=== PATIENT | female | born 1955 | race Caucasian/White ===

== ENCOUNTER 2022-07-27 05:32 | Outpatient (CLI) | payer MEDICARE, OTHER ==
[~2022-07-27] VITALS: Ht 157.5 cm; Wt 108.4 kg
[2022-07-27 09:09] LABS: BILIRUBIN,URINE NEGATIVE (NEGATIVE); CLARITY,URINE CLEAR; COLOR,URINE YELLOW; GLUCOSE, URINE (UA) NEGATIVE (NEGATIVE); KETONES,URINE NEGATIVE (NEGATIVE); LEUKOCYTE ESTERASE ,URINE TRACE (NEGATIVE); NITRITE,URINE NEGATIVE (NEGATIVE); PROTEIN,URINE NEGATIVE (NEGATIVE)
[2022-07-27] MEDS ORDERED: HYDR12.56 PO (09:17)
[2022-07-27] MEDS ORDERED: VITA1CAP PO (09:17)
[2022-07-27] MEDS ORDERED: ESCI10TA PO (09:17)
[2022-07-27] MEDS ORDERED: NAPR220C11 PO (09:17)
[2022-07-27] MEDS ORDERED: PSYL3.4P5 PO (09:17)
[2022-07-27] MEDS ORDERED: MELA1TAB51 PO (09:17)
[2022-07-27] MEDS ORDERED: PROPRANOLOL PO (09:17)
[2022-07-27] MEDS ORDERED: SEMA2.4P SQ (09:17)
[2022-07-27] MEDS ORDERED: B6/F1CAP PO (09:17)
[2022-07-27] MEDS ORDERED: LEVO75CA5 PO (09:17)
[2022-07-27] MEDS ORDERED: OLME20TA75 PO (09:17)
[2022-07-27] MEDS ORDERED: UBID60CA8 PO (09:17)
[2022-07-27] MEDS ORDERED: ONDA4TAB11 SL (09:17)
[2022-07-27] MEDS ORDERED: MULT-1136 PO (09:17)
[2022-07-27] MEDS ORDERED: TURM500C13 PO (09:17)
[2022-07-27] MEDS ORDERED: DICL20GE TP (09:17)
[2022-07-27 09:19] VITALS: BP 127/79
[2022-07-27 09:23] LABS: RBC,URINE RARE /HPF
[2022-07-27 09:24] LABS: BACTERIA,URINE NEGATIVE /HPF; SQUAMOUS EPITHELIAL CELL,UR 0-2 /HPF; WBC,URINE RARE /HPF
--- NOTE | 2022-07-27 09:49 | Physical Therapy Pre-Op Eval ---
PT Pre-Surgical Assessment Type of Surgery Type of Surgery: Prior Level of Function Current Living Status: Spouse Locomotion (Upon Admit): Independent Distance: Unlimited PLOF DME: Front Wheeled Walker Subjective Subjective Patient reports right knee pain at 3/10. Home: Single Level Current Living Status: Spouse Entry Into Home: Stairs With Railing Steps Into Home: 5 Steps Inside Home: 2 Steps Accessories: Railing Present Motor Control Motor Control: Motor Control WNL ROM ROM: WFL, except focal deficit Strength Strength: Gen Weak,No Focal Deficit Transfers Transfers (B, C, W/C) (FIM): 6 Gait Gait (FIM): 6 Distance: 200' Gait Assistive Device: None Right Lower Extremity: Right Full Weight Bearing Left Lower Extremity: Left Full Weight Bearing Treatment Rendered Treatment: Patient instructed in assistive device, supported ambulation. Patient instructed in and given written program of ROM and strengthening exercises to be preformed post-op. Patient instructed in movement precautions where applicable. Patient demonstrates understandings of post-operative therapy protocol including gait pattern and exercise program. Pre-operative instruction completed; await physical therapy orders after surgery. Treatment Goal Met: Yes Assessment Goals Acheived: I Ambulation w/ FWW, Understands P-op Precaut, I Post-op Exercises Charges/GCodes Time In: 930 Time Out: 940 Total Billed Treatment Time: 10 Total Billed Treatment Visit, VINI PACHECO PT Jul 27, 2022 09:49
[2022-07-27 10:39] LABS: BASOPHILS % (AUTO) 1 % (0-10); EOSINOPHILS # (AUTO) 0.2 10^3/uL (0.0-0.3); EOSINOPHILS % (AUTO) 3 % (0-10); HEMATOCRIT 42 % (35-52); HEMOGLOBIN 13.8 g/dL (11.5-16.0); LYMPHOCYTES # (AUTO) 1.1 10^3/uL (1.0-4.0); LYMPHOCYTES % (AUTO) 19 % (12-44); MEAN CORPUSCULAR HEMOGLOBIN 29 pg (25-34); MEAN CORPUSCULAR HGB CONC 33 g/dL (32-36); MEAN CORPUSCULAR VOLUME 89 fL (80-99); MEAN PLATELET VOLUME 11.8 fL (9.0-12.2); MONOCYTES # (AUTO) 0.7 10^3/uL (0.0-1.0); MONOCYTES % (AUTO) 12 % (0-12); NEUTROPHILS # (AUTO) 3.8 10^3/uL (1.8-7.8); NEUTROPHILS % (AUTO) 66 % (42-75); PLATELET COUNT 152 10^3/uL (130-400); WHITE BLOOD COUNT 5.8 10^3/uL (4.3-11.0)
[2022-07-27 10:56] LABS: BILIRUBIN,TOTAL 0.6 MG/DL (0.1-1.0); CALCIUM 9.7 MG/DL (8.5-10.1); CREATININE SERUM 0.77 MG/DL (0.60-1.30); POTASSIUM 3.7 MMOL/L (3.6-5.0); TOTAL PROTEIN 6.9 GM/DL (6.4-8.2)
[2022-07-27 11:13] LABS: INR 1.1 (0.8-1.4); PROTHROMBIN TIME PATIENT 14.5 SEC (12.2-14.7)
[2022-07-27 11:15] LABS: ERYTHROCYTE SEDIMENTATION RATE 28 MM/HR (0-30)
--- NOTE | 2022-07-27 12:59 | Diagnostic Imaging Report ---
INDICATION: Preoperative evaluation prior to knee replacement. COMPARISON: None FINDINGS: Frontal and lateral views of the chest demonstrate normal heart size and pulmonary vascularity. The lungs are clear. There are no signs of infiltrate, pleural effusions or pneumothoraces. The visualized osseous structures show no acute abnormalities. IMPRESSION: 1. No acute process. No signs of infiltrates, effusions or pneumothoraces. Dictated by: Dictated on workstation # [id number]
== END 2022-07-27 15:43 ==
LOC: PREOP 05:32
PROVIDERS: ATTEND Orthopaedic Surgery
DX: Z01.812 Encounter for preprocedural laboratory examination (principal); M17.11 Unilateral primary osteoarthritis, right knee
CPT/HCPCS: 36415; 71046; 80053; 81000; 82308; 85025; 85610; 85652; 86850; 86900; 86901; 87081; 93005

== ENCOUNTER 2022-08-03 05:57 | Inpatient (IN) | payer MEDICARE, OTHER ==
--- NOTE | 2022-07-27 07:51 | HISTORY AND PHYSICAL ---
This will be for inpatient admission on 08/03/2022 for right total knee arthroplasty. The patient will require regular inpatient admission due to pain management, need for physical therapy and gait abnormalities. HISTORY: The patient is a 67-year-old female with longstanding progressive right knee pain. She has previously undergone treatment with injections. She has tried weight loss without relief. She reports limitations because of the knee. Radiographs reveal severe tricompartmental osteoarthritis and due to functional impairment and failure to improve with conservative measures, the patient elected to proceed with surgical intervention. REVIEW OF SYSTEMS: No chest pain, no shortness of breath. No dysuria. PAST MEDICAL HISTORY: Hyperlipidemia, hypertension, hypothyroidism. PAST SURGICAL HISTORY: Appendectomy, adenoidectomy, cholecystectomy, tonsillectomy, hysterectomy, right wrist, right ankle, left wrist. FAMILY HISTORY: Diabetes, cancer, hypertension and stroke. PRIMARY CARE PROVIDER: Stephanie Kern, nurse practitioner. MEDICATIONS: Propranolol, ondansetron, olmesartan, melatonin, levothyroxine, hydrochlorothiazide, escitalopram, diclofenac, cholecalciferol, Aleve, acyclovir. ALLERGIES: NO KNOWN DRUG ALLERGIES. SOCIAL HISTORY: The patient denies alcohol and tobacco use. PHYSICAL EXAMINATION: GENERAL: The patient is well-developed, well-nourished, in no acute distress. HEENT: Normocephalic, atraumatic. Pupils are equal, round and reactive to light. Oropharynx is clear. NECK: Supple, with no lymphadenopathy. LUNGS: Clear to auscultation bilaterally. HEART: Regular rate and rhythm. ABDOMEN: Soft, nontender, nondistended. EXTREMITIES: The right knee demonstrates valgus alignment. She has a slight effusion. She is tender along her lateral joint line. She has palpable crepitus and pain with patellar loading. Range of motion 0/0/120. There is no varus or valgus laxity. Negative anterior and posterior drawer. Negative straight leg raise. IMPRESSION: Severe right knee osteoarthritis, unresponsive to conservative measures. PLAN: Right total knee arthroplasty. The risks, benefits, options, ramifications and recovery have been discussed at length with the patient. She understands and wishes to proceed. This is inpatient admission H and P and date of admission will be 08/03/2022. Job ID: [id number] DocumentID: [id number] Dictated Date: 07/08/2022 10:53:38 Grain Oilseed Or Pasture Farm Worker Date: 07/08/2022 12:18:00 Dictated By: SARA RUSSELL MD
[~2022-08-03] VITALS: Ht 157.5 cm; Wt 108.4 kg
[2022-08-03] VITALS (11 sets, daily range): BP systolic 99–164; BP diastolic 57–86
[~2022-08-03 05:57] MED LIST: B6/F1CAP PO; DICL20GE TP; ESCI10TA PO; HYDR12.56 PO; LEVO75CA5 PO; MELA1TAB51 PO; MULT-1136 PO; NAPR220C11 PO; OLME20TA75 PO; ONDA4TAB11 SL; PROPRANOLOL PO; PSYL3.4P5 PO; SEMA2.4P SQ; TURM500C13 PO; UBID60CA8 PO; VITA1CAP PO
[2022-08-03] MEDS ORDERED: CEFUROXIME INJECTION 1,500 MG in NS (IVPB) 50 ML IV ONE (06:30)
[2022-08-03] MEDS ORDERED: PROPOFOL INJECTION 50 ML IV ONE (06:44)
[2022-08-03] MEDS ORDERED: MIDAZOLAM 2 MG/2 ML (VERSED) VIAL ONE (06:44)
[2022-08-03] MEDS: LACTATED RINGERS 1,000 ML IV PRN ×2 (06:47→08:42)
[2022-08-03] MEDS ORDERED: fentaNYL INJ 100 MCG/2 ML AMP ONE (06:48)
[2022-08-03] MEDS ORDERED: morphine INJ 4 MG/ML 1 ML (VIAL/SYRINGE) IVP PRN (07:15)
[2022-08-03] MEDS ORDERED: ONDANSETRON 4 MG/2 ML (SDV) Z0FRAN IVP PRN ×2 (07:15→09:30)
[2022-08-03] MEDS ORDERED: diphenhydrAMINE 50 MG/ML INJ (BENADRYL) IVP PRN (07:15)
[2022-08-03] MEDS ORDERED: NALOXONE 0.4 MG/ML 1 ML (NARCAN) VIAL IV PRN (07:15)
[2022-08-03] MEDS ORDERED: INTRA-ARTICULAR IU ONE ×5 (07:30)
--- NOTE | 2022-08-03 07:34 | Progress Note-Pre Operative ---
Pre-Operative Progress Note Date of Available H&P: Jul 27, 2022 Date H&P Reviewed: Aug 03, 2022 Time H&P Reviewed: 07:11 Changes from last HP none Pre-Operative Diagnosis: right knee primary osteoarthritis SARA RUSSELL MD Aug 03, 2022 07:34
--- NOTE | 2022-08-03 07:35 | Progress Note-Post Operative ---
Post-Operative Progess Note Surgeon (s)/Senior Reactor Operator (s) Surgeon SARA RUSSELL MD Senior Reactor Operator: Clifton Bolton Pre-Operative Diagnosis right knee primary osteoarthritis Post-Operative Diagnosis right knee primary osteoarthritis Procedure & Operative Findings Date of Procedure 08/03/22 Procedure Performed/Findings right total knee arthroplasty Anesthesia Type spinal Estimated Blood Loss Estimated blood loss (mL): minimal Specimens/Packing Specimens Removed none Packing: none SARA RUSSELL MD Aug 03, 2022 07:35
--- NOTE | 2022-08-03 07:38 | D/C HH Face to Face Order ---
D/C Face to Face Orders Reconcile Patient Problems Problems Reviewed?: Yes Instructions for Patient Via Cristy Lucent Sky, Patient Instructions/FollowUp: three weeks Physician to follow Patient: three weeks Discharge Diet for Home: Regular Diet Patient Data-Allergies,Ht & Wt Patient Allergies: Coded Allergies: No Known Drug Allergies (Unverified , 07/27/22) Home Health Need/Face to Face Date of Face to Face: Aug 03, 2022 Clinical Findings: Muscle weakness, Pain with ambulation, Unsteady gait I have seen Pt elxa-fa-yrqw: Yes Discharged To: Home Diagnosis/Conditions: right total knee arthroplasty Patient is Homebound due to: Muscle weakness, Pain w/ambulation Homebound Status Due to the above stated illness, injury or surgical procedure (medical condition or diagnosis) and associated clinical findings, the patient is homebound because of his/her inability to leave home except with aid of a supportive device and/or person AND leaving the home requires a considerable and taxing effort or is medically contraindicated. Pt req the following assistanc: Walker Home Health Nursing Orders Home Health Services Order: Physical Therapy-Evaluate & Treat DC right knee rocio and apply steri strips 08/17/22 Home Health Infusion Therapy Line Start Date: Aug 03, 2022 Therapy Orders Therapy Orders: Physical Therapy, PT to assess for OT Therapy Specific Orders: Eval assistive deivces, Gait training, Increase strength/endurance, Provider maintenance therapy, Restore ROM Certify Stmt I certify that this patient is under my care and that I, a nurse practitioner or a physician; a assistant to the president working with me, had a face to face encounter that - meets the physician face to face encounter requirements with this patient as dated. SARA RUSSELL MD Aug 03, 2022 07:38
[2022-08-03] MEDS ORDERED: BUPIVACAINE 0.5% 30 ML (SENSORCAINE) VIAL ONE ×2 (07:57→08:35)
[2022-08-03] MEDS ORDERED: LIDOCAINE PF 2% 5 ML (XYLOCAINE) VIAL ONE (07:57)
[2022-08-03] MEDS ORDERED: PHENYLEPHRINE 100 MCG/ML 10 ML (ANESTHESIA) SYR ONE (08:03)
[2022-08-03] MEDS ORDERED: TRANEXAMIC ACID 100 MG/ML 10 ML INJECTION ONE (08:35)
[2022-08-03] MEDS ORDERED: ROPIVACAINE 5MG/ML 30ML VIAL ONE (08:47)
[2022-08-03] MEDS ORDERED: MEPERIDINE (DEMEROL) INJ 50 MG/ML IVP ONE (09:30)
[2022-08-03] MEDS ORDERED: morphine INJ 10 MG/ML 1ML (SYR OR VIAL) IVP ONE (09:30)
[2022-08-03] MEDS ORDERED: fentaNYL INJ 100 MCG/2 ML AMP IVP ONE (09:30)
--- NOTE | 2022-08-03 09:45 | Diagnostic Imaging Report ---
Indication: Right knee pain AP and lateral views the right knee are obtained at 9:20 a.m. There is a new right knee prosthesis in place which appears in anatomic alignment. There is no sign of fracture or acute bony abnormality. There is no unexpected radiopaque foreign body post surgery. IMPRESSION: Well aligned right knee prosthesis with no unexpected radiopaque foreign body post surgery. Dictated by: Dictated on workstation # [id number]
[2022-08-03] MEDS: NS IV 1000 ML 1,000 ML IV SCH ×2 (11:14→23:22)
--- NOTE | 2022-08-03 11:46 | Progress Note ---
Standard Progress Note Progress Notes/Assess & Plan Date Seen by a Provider: Aug 03, 2022 Time Seen by a Provider: 09:35 Progress/Assessment & Plan post op check no complaints spinal in effect radiographs--HW well positioned without fracture RLE 2 plus DP pulse with brisk cap refill s/p RTKA mobilize as able SARA RUSSELL MD Aug 03, 2022 11:46
--- NOTE | 2022-08-03 14:39 | Physical Therapy Evaluation ---
PT Evaluation-General Medical Diagnosis Admission Date Aug 03, 2022 at 05:57 Medical Diagnosis: RTKA Onset Date: Aug 03, 2022 Therapy Diagnosis Therapy Diagnosis: Gait Deficit, strength deficit Precautions Precautions/Isolations: Fall Prevention, Standard Precautions Weight Bear Status Right Lower Extremity: Right Weight Bearing/Tolerated Left Lower Extremity: Left Full Weight Bearing Referral Physician: Dr. Auguste Reason for Referral: Evaluation/Treatment Medical History Reviewed History: Yes Social History Home: Single Level Current Living Status: Spouse Entry Into Home: Stairs With Railing PT Steps Into Home: 5 Prior Prior Level of Function SCALE: Activities may be completed with or without assistive devices. 4-Qzaoirldzo-avygzzz completes the activity by him/herself with no assistance from a helper. 5-Set-up or Clean-up Assistance-helper sets up or cleans up; patient completes activity. [place] assists only prior to or following the activity. 4-Supervision or Touching Assistance-helper provides verbal cues and/or touching/steadying and/or contact guard assistance as patient completes activity. Assistance may be provided throughout the activity or intermittently. 3-Partial/Moderate Assistance-helper does LESS THAN HALF the effort. [place] lifts, holds or supports trunk or limbs, but provides less than half the effort. 2-Substantial/Maximal Assistance-helper does MORE THAN HALF the effort. [place] lifts or holds trunk or limbs and provides more than half the effort. 4-Vubpwpzhj-xshqqc does ALL the effort. Patient does none of the effort to complete the activity. Or, the assistance of 2 or more helpers is required for the patient to complete the activity. If activity was not attempted, code reason: 7-Patient Refused. 9-Not Applicable-not attempted and the patient did not perform the activity before the current illness, exacerbation or injury. 10-Not Attempted due to Environmental Limitations-(lack of equipment, weather restraints, etc.). 88-Not Attempted due to Medical Conditions or Safety Concerns. Bed Mobility: 6 Transfers (B,C,W/C): 6 Gait: 6 Stairs: 6 Indoor Mobility (Ambulation): Independent Stairs: Independent Has FWW at home. PT Evaluation-Current Subjective Patient lying supine in bed upon PT arrival, agreeable to treatment. Rates pain at 0/10 currently. Objective Patient Orientation: Person, Place, Time, Situation Attachments: Polar Pack, IV ROM/Strength ROM Lower Extremities Right knee flexion 105 degrees, extension 10 degrees from neutral All other Right LE and all left LE planes WFLs Strength Lower Extremities Left LE 4/5 all planes; right knee flexion/extension 3-/5; all other planes 4-/5 Sensory Vision: Functional Hearing: Functional Sensation Right Lower Extremit: Intact Sensation Left Lower Extremity: Intact Transfers Roll Left to Right (QC): 4 Sit to Lying (QC): 4 Lying to Sitting/Side of Bed(Q: 4 Sit to Stand (QC): 4 Chair/Mzq-zj-Krmyf Xfer(QC): 4 Gait Does the Patient Walk?: Yes Mode of Locomotion: Walk Anticipated Mode of Locomotion: Walk Walk 10 feet (QC): 4 Distance: 30' Gait Assistive Device: FWW Balance Sitting Static: Good Sitting Dynamic: Good Standing Static: Fair Standing Dynamic: Fair Assessment/Needs Patient tolerated treatment well. Requires SBA/CGA for all observed bed mobility and transfers. Patient ambulates 30 feet with FWW, with CGA and verbal cues for gait pattern, progression, safety and conservation of energy. Patient in chair post treatment with all needs met, nursing notified, call light in hand and family in the room. Rehab Potential: Good PT Non Destructive Testing Specialist Goals Detention Goals PT Non Destructive Testing Specialist Goals Time Frame: Sep 10, 2022 Roll Left & Right (QC): 6 Sit to Lying (QC): 6 Lying-Sitting on Side/Bed(QC): 6 Sit to Stand (QC): 6 Chair/Gxq-lf-Ljcrr Xfer(QC): 6 Toilet Transfer (QC): 6 Does the Patient Walk: Yes Walk 10 feet (QC): 6 Walk 50ft with 2 Turns (QC): 6 Walk 150 ft (QC): 4 1 Step (curb) (QC): 4 4 Steps (QC): 4 PT Plan Problem List Problem List: Activity Tolerance, Functional Strength, Safety, Balance, Gait, Transfer, Bed Mobility, ROM Treatment/Plan Treatment Plan: Continue Plan of Care Treatment Plan: Bed Mobility, Education, Functional Activity Ayah, Functional Strength, Group Therapy, Gait, Safety, Therapeutic Exercise, Transfers Treatment Duration: Sep 10, 2022 Frequency: 11 times per week Estimated Hrs Per Day: .25 hour per day Patient and/or Family Agrees t: Yes Safety Risks/Education Patient Education: Gait Training, Transfer Techniques Teaching Recipient: Patient Teaching Methods: Demonstration, Discussion Response to Teaching: Verbalize Understanding, Return Demonstration Time Time In: 1303 Time Out: 1323 DATE: Aug 03, 2022 Total Billed Treatment Time: 20 Total Billed Treatment Visit, VINI HAY PT Aug 03, 2022 14:39
[2022-08-03] MEDS ORDERED: LEVO75TA6 PO (15:11)
[2022-08-03] MEDS ORDERED: CELE-63 PO (15:11)
[2022-08-03] MEDS ORDERED: OLME20TA24 PO (15:11)
[2022-08-03] MEDS ORDERED: INUL1TAB4 PO (15:11)
[2022-08-03] MEDS ORDERED: GABA300C PO (15:11)
[2022-08-03] MEDS ORDERED: B6/F1CAP PO (15:11)
[2022-08-03] MEDS ORDERED: CHOL200059 PO (15:11)
[2022-08-03] MEDS ORDERED: ESCI-2 PO (15:11)
[2022-08-03] MEDS ORDERED: MELA5TAB14 PO (15:11)
[2022-08-03] MEDS ORDERED: PROP20TA5 PO (15:11)
--- NOTE | 2022-08-03 15:14 | OPERATIVE REPORT ---
DATE OF SERVICE: 08/03/2022 PREOPERATIVE DIAGNOSIS: Right knee primary osteoarthritis. POSTOPERATIVE DIAGNOSIS: Right knee primary osteoarthritis. PROCEDURE: Right total knee arthroplasty. SURGEON: Bernard Russell MD PIE TOPPER: Clifton Bolton, who assisted throughout the procedure and closed the incision. ANESTHESIA: Spinal by Clifton Saba CRNA. TOURNIQUET TIME: Approximately 58 minutes at 300 mmHg. ESTIMATED BLOOD LOSS: Minimal. DRAINS: None. COMPLICATIONS: None. POSTOPERATIVE PLAN: Routine total knee protocol. The patient was transferred to the recovery room awake and stable condition. MATERIALS: MicroPort cemented size 3 femur, cemented size 4 tibia with 10 mm insert and cemented size 29 patellar button. STATEMENT OF MEDICAL NECESSITY: The patient is a 67-year-old female with longstanding progressive right knee pain. Radiographs revealed severe medial and patellofemoral arthrosis. She has undergone treatment with injections, anti-inflammatories and rest without relief. Due to functional impairment and failure to improve with conservative measures, the patient elected to proceed with surgical intervention. DESCRIPTION OF PROCEDURE: After risks and benefits of the procedure were discussed and questions were answered and informed consent signed and placed on chart, the operative site was confirmed in the preoperative holding initialed by the surgeon. The patient was then transferred to the operating room and after adequate levels of spinal anesthetic were obtained, a timeout was called, confirming the operative site. The right lower extremity was prepped and draped in the usual sterile fashion with the leg elevated and the knee flexed, tourniquet was inflated to 300 mmHg. Standard anterior approach was utilized. Hemostasis was obtained with cautery. Medial parapatellar arthrotomy was performed, leaving 1 cm cuff on the patella for later reattachment. The ACL was resected. The custom block was placed distally and pinned into position. The distal cut was made in the previously placed drill holes for the custom block, was used to place the 3 cutting block. The 3 cutting block was then used for the cuts from posterior to anterior. The femoral trial was placed and trochlear cut was made. A subperiosteal release was carefully performed on the posterior distal femur. Again, careful to stay on the bony surface. The custom tibial cutting block was then placed. Drop grecia transected the intermalleolar axis. The cut was made. The 4 baseplate was placed. The drop grecia transected the intermalleolar axis. This was then prepared with the drill and keel punch. Due to her body habitus, it was elected to place a 25 mm stem. The trials were inserted, 10 mm insert was placed. The patella was then prepared by resecting 10 mm off the undersurface. The peg holes were placed. The 29 trial was placed and the knee was taken through range of motion. Full extension was easily obtained, 120 degrees of flexion with gravity was easily obtained. There was no anterior/posterior or medial/lateral laxity in flexion or extension. The patella tracked well. The trials were removed. The joint was irrigated with pulse lavage. Periarticular block was placed in the posterior capsule, medial and lateral retinaculum, extensor mechanism, subcutaneous tissues. The bone ends were irrigated. The tibial baseplate was cemented into position. Excessive cement was removed. The superior surface was irrigated and dried. The polyethylene insert was placed. Distal femur was irrigated and dried and the femoral prosthesis was cemented into position. Excessive cement was removed. The knee was brought out into full extension until the cement had cured. The undersurface of the patella was irrigated and dried. The patellar button was cemented into position. Excessive cement was removed. Once the cement had cured, the knee was taken through range of motion. Full extension was easily obtained, 120 degrees of flexion with gravity was easily obtained. The patella tracked well. There was no anterior/posterior or medial/lateral laxity in flexion or extension. The joint was further irrigated with pulse lavage. The arthrotomy was closed with #2 Tevdek in gaujql-ze-hnvov interrupted fashion. Knee was flexed. Repair was stable. The subcutaneous tissues were irrigated using a total of 6 liters throughout the procedure. A 0 Vicryl was used for deep subcutaneous layer, 2-0 Vicryl for the superficial subcutaneous layer, rocio were used on the skin. A soft dressing was applied. The patient was transferred to the recovery room awake and stable condition. Job ID: [id number] DocumentID: [id number] Dictated Date: 08/03/2022 09:28:20 Integration Software Engineer Date: 08/03/2022 15:12:00 Dictated By: BERNARD RUSSELL MD
[2022-08-03] MEDS: CEFUROXIME INJECTION 750 MG in NS (IVPB) 50 ML IV SCH ×2 (15:50→23:22)
--- NOTE | 2022-08-03 16:22 | Consultation - Hospitalist ---
HPI History of Present Illness: HPI/Chief Complaint Penelope Merino is a 67 year old female with PMH HTN, HLD, hypothyroidism, osteoarthritis, who was admitted following a scheduled total knee arthroplasty. She was seen postoperatively. She is not having any pain. She is now able to move her knee a bit. She has not been up with therapy yet. She has no complaints or concerns at this time. Source: patient Exam Limitations: no limitations Date Seen 08/03/22 Attending Physician No,Local Physician PCP Admitting Physician: Bernard Auguste MD Attending Physician: Bernard Auguste MD Referring Physician Date of Admission Aug 03, 2022 at 05:57 Home Medications & Allergies Home Medications Reviewed patient Home Medication Reconciliation performed by pharmacy medication reconciliations mobile battery technician and/or nursing. Patients Allergies have been reviewed. Allergies Allergies Coded Allergies No Known Drug Allergies (Unverified07/27/22) Past Pcalvev-Kxtimr-Dnmqps Hx Patient Social History Tobacco Use?: No Smoking Status: Never a Smoker Substance use?: No Alcohol Use?: No Pt feels they are or have been: No Immunizations Up To Date Date of Influenza Vaccine: Nov 15, 2021 First/Initial COVID19 Vaccinat: NONE Hepatitis A: Yes Hepatitis B: Yes Seasonal Allergies Seasonal Allergies: Yes Current Status status: No status: No Advance Directives: No Advance Directive Location: Unable to obtain copy Communicates: Verbally Primary Language: Swazi Preferred Spoken Language: Swazi Is interpretation needed?: No Implanted or Applied Medical D: None Past Medical History Surgeries: Adenoidectomy, Appendectomy, Gallbladder, Hysterectomy, Oophorectomy, Orthopedic, Tonsillectomy Pneumonia Currently Using CPAP: No Currently Using BIPAP: No Hypertension Headaches /Migraines FACING BASTER JUMPBASTING History: Hysterectomy Sexually Transmitted Disease: No Gastroesophageal Reflux, Gall Bladder Disease Arthritis, Fractures Hypothyroidsim Loss of Vision: Denies Hearing Impairment: Denies Depression Blood Disorders: No Adverse Reaction/Blood Tranf: No Family Medical History No Pertinent Family Hx Review of Systems Constitutional: no symptoms reported Respiratory: no symptoms reported Cardiovascular: no symptoms reported Gastrointestinal: no symptoms reported Physical Exam Physical Exam Vital Signs Vital Signs - First Documented 08/03/22 06:39 Temp 36.6 Pulse 71 Resp 20 B/P (MAP) 143/68 (93) Pulse Ox 95 O2 Delivery Room Air Capillary Refill : Less Than 3 Seconds Height, Weight, BMI Height: '" Weight: lbs. oz. kg; 43.69 BMI Method: General Appearance: No Apparent Distress, Obese HEENT: PERRL/EOMI, Pharynx Normal Neck: Normal Inspection, Supple Respiratory: Lungs Clear, No Respiratory Distress Cardiovascular: Regular Rate, Rhythm, No Murmur Gastrointestinal: Normal Bowel Sounds, Non Tender, Soft Extremity: Normal Inspection, No Pedal Edema Neurologic/Psychiatric: Alert, Oriented x3, No Motor/Sensory Deficits Skin: Normal Color, Warm/Dry Results Results/Procedures Labs Patient resulted labs reviewed. Imaging: Reviewed Imaging Report Assessment/Plan Assessment and Plan Assess & Plan/Chief Complaint s/p TKA Osteoarthritis of right knee Ortho primary s/p TKA 08/03 Pain regimen Bowel regimen Incentive spirometry PT/OT IRU evaluation HTN Hypothyroidism Morbid obesity Continue home meds as able DVT prophylaxis: Lovenox Diagnosis/Problems Diagnosis/Problems (1) Osteoarthritis of right knee Status: Acute Qualifiers: Osteoarthritis type: primary Qualified Codes: M17.11 - Unilateral primary osteoarthritis, right knee (2) S/P total knee arthroplasty Status: Acute Qualifiers: Laterality: right Qualified Codes: Z96.651 - Presence of right artificial knee joint (3) HTN (hypertension) Status: Chronic (4) Hypothyroidism Status: Chronic (5) Morbid obesity Status: Chronic MAURICIO ADAMS MD Aug 03, 2022 16:21
[2022-08-03] MEDS: oxyCODONE/APAP 5/325MG (PERCOCET 5) TABLET PO PRN (20:48)
[2022-08-03] MEDS: SENNA W/DOCUSATE (SENOKOT S) TABLET PO SCH (20:49)
[2022-08-03] MEDS: GABAPENTIN 300 MG (NEURONTIN) CAP PO SCH (20:49)
[2022-08-03] MEDS ORDERED: PROPRANOLOL 20 MG (INDERAL) TABLET PO SCH ×2 (21:00)
[2022-08-03] MEDS ORDERED: CYCLOBENZAPRINE 10 MG (FLEXERIL) TAB PO PRN (22:30)
[2022-08-03] MEDS ORDERED: fentaNYL INJ 100 MCG/2 ML AMP IVP PRN (22:45)
[2022-08-04] VITALS: BP 113/70
[2022-08-04 04:00] VITALS: BP 98/62
[2022-08-04 05:08] LABS: HEMOGLOBIN 11.1 g/dL (11.5-16.0)
[2022-08-04] MEDS: LEVOTHYROXINE 75 MCG (LEVOTHROID) TABLET PO SCH (06:14)
[2022-08-04 07:37] VITALS: BP 112/59
--- NOTE | 2022-08-04 07:58 | Progress Note ---
Standard Progress Note Progress Notes/Assess & Plan Date Seen by a Provider: Aug 04, 2022 Time Seen by a Provider: 07:50 Progress/Assessment & Plan post op check no complaints spinal in effect radiographs--HW well positioned without fracture RLE 2 plus DP pulse with brisk cap refill s/p RTKA mobilize as able Final Diagnosis no complaints has not ambulated much Vital Signs Date Time Temp Pulse Resp B/P (MAP) Pulse Ox O2 Delivery O2 Flow Rate FiO2 08/04/22 07:37 37.1 79 16 112/59 (76) 97 Nasal Cannula 3.00 08/04/22 05:36 96 Nasal Cannula 3.00 08/04/22 04:00 36.5 72 16 98/62 (74) 96 Nasal Cannula 3.00 08/04/22 00:00 36.6 70 16 113/70 (84) 96 Nasal Cannula 3.00 08/03/22 21:29 61 100/61 (74) 08/03/22 20:25 96 Room Air 08/03/22 19:28 36.1 63 16 126/57 (80) 92 Room Air 08/03/22 15:46 36.1 60 18 99/64 (76) 97 Room Air 08/03/22 15:14 Room Air 08/03/22 11:33 36.0 55 18 134/75 (94) 98 Room Air 08/03/22 10:15 Room Air 08/03/22 10:10 36.2 12 134/74 (94) 96 Room Air 08/03/22 10:05 Room Air 08/03/22 10:00 12 120/66 (84) 97 Room Air 08/03/22 09:50 12 120/62 (81) 100 OxyMask 4 08/03/22 09:50 OxyMask 4 08/03/22 09:40 12 137/70 (92) 100 OxyMask 4 08/03/22 09:35 OxyMask 4 08/03/22 09:30 12 156/75 (102) 100 OxyMask 4 08/03/22 09:20 OxyMask 4 08/03/22 09:20 36.1 16 164/86 (112) 99 OxyMask 4 I & O 08/04/22 07:00 Intake Total 3050 ml Balance 3050 ml Laboratory Tests Test 08/04/22 04:32 Range/Units Hemoglobin 11.1 L 11.5-16.0 g/dL Hematocrit 35 35-52 % RLE--dressing clean and dry no calf tenderness intact DF and PF of toes and ankle sensation intact to light touch throughout s/p RTKA PT/OT likely DC tomorrow SARA RUSSELL MD Aug 04, 2022 07:58
[2022-08-04] MEDS: SENNA W/DOCUSATE (SENOKOT S) TABLET PO SCH ×2 (08:14→20:13)
[2022-08-04] MEDS: LOSARTAN 100 MG (COZAAR) TABLET PO SCH (08:14)
[2022-08-04] MEDS: PROPRANOLOL 20 MG (INDERAL) TABLET PO SCH (08:14)
[2022-08-04] MEDS: HydroCHLOROthiazide CAP/TABLET 12.5 MG TAB PO SCH (08:15)
[2022-08-04] MEDS: ASPIRIN E.C. 81 MG (ECOTRIN) TAB PO SCH (08:15)
[2022-08-04] MEDS: ENOXAPARIN INJECTION 30 MG/0.3 ML SYR SC SCH ×2 (08:15→20:12)
[2022-08-04] MEDS: oxyCODONE/APAP 5/325MG (PERCOCET 5) TABLET PO PRN ×3 (08:51→21:09)
[2022-08-04] MEDS ORDERED: NON-FORMULARY MEDICATION 1 EA EA (Escitalopram Oxalate 10 MG) PO SCH (09:00)
[2022-08-04] MEDS ORDERED: NON-FORMULARY MEDICATION 1 EA EA (Olmesartan Medoxomil 20 MG) PO SCH (09:00)
[2022-08-04] MEDS ORDERED: NON-FORMULARY MEDICATION 1 EA EA (Hydrochlorothiazide 12.5 MG) PO SCH (09:00)
--- NOTE | 2022-08-04 09:35 | Progress Note - Hospitalist ---
Subjective HPI/CC On Admission Date Seen by Provider: Aug 04, 2022 Time Seen by Provider: 09:00 Penelope Merino is a 67 year old female with PMH HTN, HLD, hypothyroidism, osteoarthritis, who was admitted following a scheduled total knee arthroplasty. She was seen postoperatively. She is not having any pain. She is now able to move her knee a bit. She has not been up with therapy yet. She has no complaints or concerns at this time. Subjective/Events-last exam She has been having some pain. She has been up to the bathroom. She denies nausea and vomiting. She denies abdominal pain. She has no other complaints. Objective Exam Vital Signs Vital Signs Date Time Temp Pulse Resp B/P (MAP) Pulse Ox O2 Delivery O2 Flow Rate FiO2 08/04/22 07:37 37.1 79 16 112/59 (76) 97 Nasal Cannula 3.00 Capillary Refill : Less Than 3 Seconds General Appearance: No Apparent Distress, Obese Respiratory: Lungs Clear, No Respiratory Distress Cardiovascular: Regular Rate, Rhythm, No Murmur Gastrointestinal: Normal Bowel Sounds, Soft Extremity: No Inflammation; Swelling Neurologic/Psychiatric: Alert, No Motor/Sensory Deficits Skin: Normal Color, Warm/Dry Results/Procedures Lab Laboratory Tests 08/04/22 04:32 Patient resulted labs reviewed. Imaging: Reviewed Imaging Report Assessment/Plan Assessment and Plan Assess & Plan/Chief Complaint s/p TKA Osteoarthritis of right knee Ortho primary s/p TKA 08/03 Pain regimen Bowel regimen Incentive spirometry PT/OT IRU evaluation HTN Hypothyroidism Morbid obesity Continue home meds as able DVT prophylaxis: Lovenox Diagnosis/Problems Diagnosis/Problems (1) Osteoarthritis of right knee Status: Acute Qualifiers: Osteoarthritis type: primary Qualified Codes: M17.11 - Unilateral primary osteoarthritis, right knee (2) S/P total knee arthroplasty Status: Acute Qualifiers: Laterality: right Qualified Codes: Z96.651 - Presence of right artificial knee joint (3) HTN (hypertension) Status: Chronic (4) Hypothyroidism Status: Chronic (5) Morbid obesity Status: Chronic MAURICIO ADAMS MD Aug 04, 2022 09:35
--- NOTE | 2022-08-04 10:04 | Physical Therapy Daily Note ---
PT Daily Note-Current Subjective Patient agrees to PT. Pain Numeric Pain Scale: 8 Location: Right Location Body Site: Knee Pain Description: Acute Section J - Health Conditions 1. Rarely or not at all 2. Occasionally 3. Frequently 4. Almost constantly 8. Unable to answer Pain Effect on Sleep: 2 Pain Interference with Therapy: 2 Pain Interference w/Day-to-Day: 2 Mental Status Patient Orientation: Normal For Age Transfers SCALE: Activities may be completed with or without assistive devices. 2-Nqqcyvspji-wbjnnth completes the activity by him/herself with no assistance from a helper. 5-Set-up or Clean-up Assistance-helper sets up or cleans up; patient completes activity. [place] assists only prior to or following the activity. 4-Supervision or Touching Assistance-helper provides verbal cues and/or touching/steadying and/or contact guard assistance as patient completes activity. Assistance may be provided throughout the activity or intermittently. 3-Partial/Moderate Assistance-helper does LESS THAN HALF the effort. [place] lifts, holds or supports trunk or limbs, but provides less than half the effort. 2-Substantial/Maximal Assistance-helper does MORE THAN HALF the effort. [place] lifts or holds trunk or limbs and provides more than half the effort. 1-Fxlpqpnpo-xakrpo does ALL the effort. Patient does none of the effort to complete the activity. Or, the assistance of 2 or more helpers is required for the patient to complete the activity. If activity was not attempted, code reason: 7-Patient Refused. 9-Not Applicable-not attempted and the patient did not perform the activity before the current illness, exacerbation or injury. 10-Not Attempted due to Environmental Limitations-(lack of equipment, weather restraints, etc.). 88-Not Attempted due to Medical Conditions or Safety Concerns. Lying to Sitting/Side of Bed(Q: 4 Sit to Stand (QC): 3 Chair/Jzy-yz-Jbdax Xfer(QC): 2 (patient impulsively sat to chair requiring PT to assist to attain safely) Toilet Transfer (QC): 2 Weight Bearing Right Lower Extremity: Right Weight Bearing/Tolerated Left Lower Extremity: Left Full Weight Bearing Gait Training Distance: 30' x 1/15' x 1 Walk 10 feet (QC): 3 Exercises Supine Ex: Ankle pumps, Quad Set, Heel Slides, Straight leg raise (`) Supine Reps: 10 Seated Therapy Exercises: Long arc quads Seated Reps: 15 Assessment Patient requires encouragement and assist to complete all functional tasks. Patient very resistive with all mobility due to pain. PT educated patient on importance of utilizing total body for all mobility and safety. Patient up in chair with needs met. PT Halfway Goals Laser Specialist Goals PT Laser Specialist Goals Time Frame: Sep 10, 2022 Roll Left & Right (QC): 6 Sit to Lying (QC): 6 Lying-Sitting on Side/Bed(QC): 6 Sit to Stand (QC): 6 Chair/Lqq-sk-Nfqiz Xfer(QC): 6 Toilet Transfer (QC): 6 Does the Patient Walk: Yes Walk 10 feet (QC): 6 Walk 50ft with 2 Turns (QC): 6 Walk 150 ft (QC): 4 1 Step (curb) (QC): 4 4 Steps (QC): 4 PT Plan Treatment/Plan Treatment Plan: Continue Plan of Care Treatment Plan: Bed Mobility, Education, Functional Activity Ayah, Functional Strength, Group Therapy, Gait, Safety, Therapeutic Exercise, Transfers Treatment Duration: Sep 10, 2022 Frequency: 11 times per week Estimated Hrs Per Day: .25 hour per day Patient and/or Family Agrees t: Yes Time Time In: 800 Time Out: 835 DATE: Aug 04, 2022 Total Billed Treatment Time: 35 Total Billed Treatment 1 visit EX 15 min GT 20 min PHAM WAN PT Aug 04, 2022 10:04
--- NOTE | 2022-08-04 10:06 | Anesthesia-Regional Post-Op ---
Regional Patient Condition Mental Status: Alert, Oriented x3 Circulation: Same as Pre-Op Headache: Absent Sensation: Full Recovery Motor Block: Absent Post Op Complications Complications None Follow Up Care/Instructions Patient Instructions None needed. Anesthesia/Patient Condition Patient is doing well, no complaints, stable vital signs, no apparent adverse anesthesia problems. No complications reported per nursing. GIULIA MCKINNEY CRNA Aug 04, 2022 10:06
[2022-08-04 11:34] VITALS: BP 91/50
--- NOTE | 2022-08-04 13:34 | Physical Therapy Daily Note ---
PT Daily Note-Current Subjective Patient agrees to PT. Family present. Patient is very lethargic. Pain Section J - Health Conditions 1. Rarely or not at all 2. Occasionally 3. Frequently 4. Almost constantly 8. Unable to answer Pain Effect on Sleep: 2 Pain Interference with Therapy: 2 Pain Interference w/Day-to-Day: 2 Transfers SCALE: Activities may be completed with or without assistive devices. 7-Nzvnmevffu-pizrhns completes the activity by him/herself with no assistance from a helper. 5-Set-up or Clean-up Assistance-helper sets up or cleans up; patient completes activity. [place] assists only prior to or following the activity. 4-Supervision or Touching Assistance-helper provides verbal cues and/or touching/steadying and/or contact guard assistance as patient completes activity. Assistance may be provided throughout the activity or intermittently. 3-Partial/Moderate Assistance-helper does LESS THAN HALF the effort. [place] lifts, holds or supports trunk or limbs, but provides less than half the effort. 2-Substantial/Maximal Assistance-helper does MORE THAN HALF the effort. [place] lifts or holds trunk or limbs and provides more than half the effort. 5-Nwpkprxia-dpjsyp does ALL the effort. Patient does none of the effort to complete the activity. Or, the assistance of 2 or more helpers is required for the patient to complete the activity. If activity was not attempted, code reason: 7-Patient Refused. 9-Not Applicable-not attempted and the patient did not perform the activity before the current illness, exacerbation or injury. 10-Not Attempted due to Environmental Limitations-(lack of equipment, weather restraints, etc.). 88-Not Attempted due to Medical Conditions or Safety Concerns. Sit to Lying (QC): 3 Sit to Stand (QC): 3 Chair/Kwc-bn-Dmfvk Xfer(QC): 3 Weight Bearing Right Lower Extremity: Right Weight Bearing/Tolerated Left Lower Extremity: Left Full Weight Bearing Gait Training Distance: 15' Walk 10 feet (QC): 3 Gait Assistive Device: FWW very slow, antalgic, step to Exercises Supine Ex: Ankle pumps, Quad Set, Heel Slides, Straight leg raise Supine Reps: 15 (AAROM right LE) Seated Therapy Exercises: Long arc quads Seated Reps: 15 Assessment Patient continues to lack ~20 degrees extension right knee. Patient very lethargic and per family, meds have been changed. PT to continue to increase activity as tolerated by patient. PT School Cleaner Goals Correction Goals PT School Cleaner Goals Time Frame: Sep 10, 2022 Roll Left & Right (QC): 6 Sit to Lying (QC): 6 Lying-Sitting on Side/Bed(QC): 6 Sit to Stand (QC): 6 Chair/Eum-ic-Drxmc Xfer(QC): 6 Toilet Transfer (QC): 6 Does the Patient Walk: Yes Walk 10 feet (QC): 6 Walk 50ft with 2 Turns (QC): 6 Walk 150 ft (QC): 4 1 Step (curb) (QC): 4 4 Steps (QC): 4 PT Plan Treatment/Plan Treatment Plan: Continue Plan of Care Treatment Plan: Bed Mobility, Education, Functional Activity Ayah, Functional Strength, Group Therapy, Gait, Safety, Therapeutic Exercise, Transfers Treatment Duration: Sep 10, 2022 Frequency: 11 times per week Estimated Hrs Per Day: .25 hour per day Patient and/or Family Agrees t: Yes Time Time In: 1235 Time Out: 1300 DATE: Aug 04, 2022 Total Billed Treatment Time: 25 Total Billed Treatment 1 visit EX 15 min GT 10 min PHAM WAN PT Aug 04, 2022 13:34
[2022-08-04 15:55] VITALS: BP 91/60
[2022-08-04 19:08] VITALS: BP 137/72
[2022-08-04] MEDS: GABAPENTIN 300 MG (NEURONTIN) CAP PO SCH (20:12)
[2022-08-05] VITALS: BP 110/53
--- NOTE | 2022-08-05 02:35 | DISCHARGE SUMMARY ---
DIAGNOSES: 1. Right knee primary osteoarthritis. 1. Hyperlipidemia. 2. Hypertension. 3. Hypothyroidism. PROCEDURE: Right total knee arthroplasty. SUMMARY OF HOSPITAL COURSE: The patient is a 67-year-old female who underwent a right total knee arthroplasty the day of admission. Postoperatively, she did well. At the time of discharge, her wound was clean and dry. She had no calf tenderness. Negative Homans sign. She was tolerating her diet well and tolerating pain with oral pain medication. CONDITION AT DISCHARGE: Good. DISCHARGE DIET: Regular. FOLLOWUP: Three weeks. ACTIVITIES: Weightbearing as tolerated with a walker. Home physical therapy will be arranged. DISCHARGE MEDICATIONS: Home medications, Percocet for breakthrough pain, tramadol, gabapentin and Celebrex with one aspirin per day for 30 days. Job ID: [id number] DocumentID: [id number] Dictated Date: 08/04/2022 08:00:27 Mechanical Service Representative Date: 08/05/2022 02:32:00 Dictated By: SARA RUSSELL MD
[2022-08-05 03:44] VITALS: BP 112/55
[2022-08-05] MEDS: oxyCODONE/APAP 5/325MG (PERCOCET 5) TABLET PO PRN (03:49)
[2022-08-05] MEDS: LEVOTHYROXINE 75 MCG (LEVOTHROID) TABLET PO SCH (05:41)
[2022-08-05 05:51] LABS: HEMOGLOBIN 9.7 g/dL (11.5-16.0)
--- NOTE | 2022-08-05 07:02 | Progress Note ---
Standard Progress Note Progress Notes/Assess & Plan Date Seen by a Provider: Aug 05, 2022 Time Seen by a Provider: 06:55 Progress/Assessment & Plan post op check no complaints spinal in effect radiographs--HW well positioned without fracture RLE 2 plus DP pulse with brisk cap refill s/p RTKA mobilize as able Final Diagnosis no complaints Vital Signs Date Time Temp Pulse Resp B/P (MAP) Pulse Ox O2 Delivery O2 Flow Rate FiO2 08/05/22 03:44 37.3 75 16 112/55 (74) 97 Nasal Cannula 2.00 08/05/22 00:00 37.0 76 18 110/53 (72) 96 Nasal Cannula 2.00 08/04/22 20:00 Room Air 08/04/22 19:08 36.8 80 18 137/72 (93) 98 Nasal Cannula 2.00 08/04/22 15:55 36.7 74 20 91/60 (70) 97 Nasal Cannula 2.00 08/04/22 11:34 36.7 66 20 91/50 (64) 94 Room Air 08/04/22 08:50 Room Air 08/04/22 07:37 37.1 79 16 112/59 (76) 97 Nasal Cannula 3.00 I & O 08/05/22 07:00 Intake Total 1180 ml Balance 1180 ml Laboratory Tests Test 08/05/22 05:05 Range/Units Hemoglobin 9.7 L 11.5-16.0 g/dL Hematocrit 30 L 35-52 % RLE--incision clean and dry no calf tenderness neg Marly's s/p RTKA doing well DC after PT today SARA RUSSELL MD Aug 05, 2022 07:02
[2022-08-05 07:12] VITALS: BP 119/74
--- NOTE | 2022-08-05 08:03 | Physical Therapy Daily Note ---
PT Daily Note-Current Subjective Patient agrees to PT. Patient is more alert on this date. Pain Numeric Pain Scale: 5-Moderate Pain Location: Right Location Body Site: Knee Pain Description: Acute Section J - Health Conditions 1. Rarely or not at all 2. Occasionally 3. Frequently 4. Almost constantly 8. Unable to answer Pain Effect on Sleep: 1 Pain Interference with Therapy: 1 Pain Interference w/Day-to-Day: 1 Mental Status Patient Orientation: Normal For Age Transfers SCALE: Activities may be completed with or without assistive devices. 6-Qlxgoyjxms-agtardn completes the activity by him/herself with no assistance from a helper. 5-Set-up or Clean-up Assistance-helper sets up or cleans up; patient completes activity. [place] assists only prior to or following the activity. 4-Supervision or Touching Assistance-helper provides verbal cues and/or t ouching/steadying and/or contact guard assistance as patient completes activity. Assistance may be provided throughout the activity or intermittently. 3-Partial/Moderate Assistance-helper does LESS THAN HALF the effort. [place] lifts, holds or supports trunk or limbs, but provides less than half the effort. 2-Substantial/Maximal Assistance-helper does MORE THAN HALF the effort. [place] lifts or holds trunk or limbs and provides more than half the effort. 4-Qukohebul-wrriql does ALL the effort. Patient does none of the effort to complete the activity. Or, the assistance of 2 or more helpers is required for the patient to complete the activity. If activity was not attempted, code reason: 7-Patient Refused. 9-Not Applicable-not attempted and the patient did not perform the activity before the current illness, exacerbation or injury. 10-Not Attempted due to Environmental Limitations-(lack of equipment, weather restraints, etc.). 88-Not Attempted due to Medical Conditions or Safety Concerns. Lying to Sitting/Side of Bed(Q: 5 Sit to Stand (QC): 5 Chair/Wsc-fw-Hvvbj Xfer(QC): 5 Weight Bearing Right Lower Extremity: Right Weight Bearing/Tolerated Left Lower Extremity: Left Full Weight Bearing Gait Training Distance: 150' Walk 10 feet (QC): 4 Walk 50 ft with 2 Turns(QC): 4 Walk 150 ft (QC): 4 Gait Assistive Device: FWW slow, antalgic, step to gait sequence Exercises Supine Ex: Ankle pumps, Quad Set, Heel Slides, Straight leg raise Supine Reps: 15 (continues to have difficulty activating right quad due to pain per her report) Seated Therapy Exercises: Long arc quads Seated Reps: 15 (AAROM due to difficulty activating right quad) Assessment Patient lacks ~20 degrees extension right knee/flexion 80 degrees. Patient educated on performing HEP issued at preop 3/day at 15 reps. Patient voices understanding. Patient to dismiss to home on this date. PT Penitentiary Goals Penitentiary Goals PT Aircraft Machinist Goals Time Frame: Sep 10, 2022 Roll Left & Right (QC): 6 Sit to Lying (QC): 6 Lying-Sitting on Side/Bed(QC): 6 Sit to Stand (QC): 6 Chair/Pyc-jx-Cgmcd Xfer(QC): 6 Toilet Transfer (QC): 6 Does the Patient Walk: Yes Walk 10 feet (QC): 6 Walk 50ft with 2 Turns (QC): 6 Walk 150 ft (QC): 4 1 Step (curb) (QC): 4 4 Steps (QC): 4 PT Plan Treatment/Plan Treatment Plan: Discontinue PT Treatment Plan: Bed Mobility, Education, Functional Activity Ayah, Functional Strength, Group Therapy, Gait, Safety, Therapeutic Exercise, Transfers Treatment Duration: Sep 10, 2022 Frequency: 11 times per week Estimated Hrs Per Day: .25 hour per day Patient and/or Family Agrees t: Yes Time Time In: 715 Time Out: 740 DATE: Aug 05, 2022 Total Billed Treatment Time: 25 Total Billed Treatment 1 visit EX 14 min GT 11 min PHAM WAN PT Aug 05, 2022 08:03
[2022-08-05] MEDS: ENOXAPARIN INJECTION 30 MG/0.3 ML SYR SC SCH (09:49)
[2022-08-05] MEDS: LOSARTAN 100 MG (COZAAR) TABLET PO SCH (09:49)
[2022-08-05] MEDS: ASPIRIN E.C. 81 MG (ECOTRIN) TAB PO SCH (09:49)
[2022-08-05] MEDS: HydroCHLOROthiazide CAP/TABLET 12.5 MG TAB PO SCH (09:50)
[2022-08-05] MEDS: SENNA W/DOCUSATE (SENOKOT S) TABLET PO SCH (09:50)
[2022-08-05] MEDS: PROPRANOLOL 20 MG (INDERAL) TABLET PO SCH (09:50)
== END 2022-08-05 09:55 | disposition home health service (06) | DRG 470 ==
LOC: 4TH 05:57 → SURG 05:58 → 4TH 10:24
PROVIDERS: ADMIT Orthopaedic Surgery; ATTEND Orthopaedic Surgery
PROC: 0SRC0J9 Replacement of Right Knee Joint with Synthetic Substitute, Cemented, Open Approach (ICD-10-PCS; principal; 2022-08-03 07:32)
DX: M17.11 Unilateral primary osteoarthritis, right knee (principal); Z68.41 Body mass index [BMI] 40.0-44.9, adult; I10 Essential (primary) hypertension; E78.5 Hyperlipidemia, unspecified; E03.9 Hypothyroidism, unspecified; Z79.899 Other long term (current) drug therapy; Z79.890 Hormone replacement therapy; E66.01 Morbid (severe) obesity due to excess calories; Z28.310 Unvaccinated for COVID-19
CPT/HCPCS: 36415; 73560; 85014; 85018; 86850; 86900; 86901; 87081; 94664; 94760